=== PATIENT | female | born 1955 | race Caucasian/White ===

== ENCOUNTER 2017-03-08 16:22 | Emergency (ER) | payer OTHER ==
[~2017-03-08] VITALS: Ht 172.7 cm; Wt 83.9 kg
[~2017-03-08 16:22] MED LIST: AMOX875T60 PO; ASCO-342 PO; ASPI-1471 PO; CLIN300C99 PO; IBUP800T37 PO; LIRA0.6P3 SQ; LISI-374 PO; METF-420 PO; OXYC-865 PO; RANI150C17 PO; SIMV-49 PO; TRAM-420 PO
--- NOTE | 2017-03-08 16:29 | ER Report ---
History and Physical Time Seen By MD: 16:28 HPI/ROS CHIEF COMPLAINT: dental pain and lump under her jaw HISTORY OF PRESENT ILLNESS: PT has poor dentition with multiple missing teeth. PT states her remaining left lower molar broke a few months ago. Pt has come to the ed 3 times in January for dental pain. Pt states she needs dental surgery and has an appt in [place] next week. Pt here in [place] today visiting her daughter who is in college. States that she has a lump under her right side of her jaw that started yesterday but seems to be getting worse while here on her visit. Lump is mobile and painful. no fevers. no chills REVIEW OF SYSTEMS: GEn: neg fever HEENT: dental pain, Respiratory: No cough, no dyspnea. Cardiovascular: No chest pain, no palpitations. Gastrointestinal: No vomiting, no abdominal pain. Musculoskeletal: No back pain, + lump under neck Allergies: Coded Allergies: No Known Drug Allergies (Unverified , 03/08/17) Home Meds Reported Medications Furosemide (FUROSEMIDE) 20 Mg Tablet, 1 TAB PO Q6H, TAB 03/08/17 Liraglutide (VICTOZA 2-SHANIA) 0.6 Mg/0.1 Ml Pen.injctr, 0.6 MG SQ 01/24/17 Ascorbic Acid (C-1000) 1,000 Mg Tablet, 1000 MG PO QDAY 10/04/14 Aspirin (ASPIR 81) 81 Mg Tablet.dr, 81 MG PO QDAY, TAB 10/04/14 Ibuprofen (IBUPROFEN) 800 Mg Tablet, 1 TAB PO Q8H, TAB 10/04/14 Simvastatin (SIMVASTATIN) 20 Mg Tablet, 20 MG PO HS, TAB 10/04/14 Ranitidine Hcl (RANITIDINE HCL) 150 Mg Capsule, 150 MG PO BID, CAPSULE 10/04/14 Metformin Hcl (METFORMIN HCL) 1,000 Mg Tablet, 1 TAB PO BID, TAB 10/04/14 Lisinopril (LISINOPRIL) 40 Mg Tablet, 40 MG PO QDAY 10/04/14 Discontinued Scripts Clindamycin Hcl (CLINDAMYCIN HCL) 300 Mg Capsule, 300 MG PO Q6H, #40 CAPSULE Prov:EMI DONATO PROCESS CONTROL SUPERVISOR 01/18/17 Past Medical/Surgical History Pmhx: dm, htn, hyperlipid Reviewed Nurses Notes: Yes Old Medical Records Reviewed: Yes Hx Smoking: No Smoking Status: Never Smoker Hx Substance Use Disorder: No Hx Alcohol Use: No Constitutional Vital Sign - Last 24 Hours 03/08/17 03/08/17 03/08/17 03/08/17 16:25 16:26 16:30 16:37 Temp 97.8 Pulse 70 69 Resp 14 B/P (MAP) 165/96 (119) 165/96 171/93 (119) Pulse Ox 95 98 O2 Delivery Room Air 03/08/17 03/08/17 03/08/17 03/08/17 16:52 17:00 17:22 17:30 Pulse 72 78 B/P (MAP) 141/78 (99) 142/88 (106) Pulse Ox 92 95 Physical Exam General Appearance: The patient is alert, has no immediate need for airway protection and no signs of toxicity. Eyes: Pupils equal and round no pallor or injection, EOMI ENT: no pharyngeal erythema or exudates, Mucous membranes are moist, TM are nl b/l; + poor dentition with multiple missing teeth and cavities evident in present teeth; no palpable abscess felt on gum line Respiratory: There are no retractions, lungs are clear to auscultation. Cardiovascular: Regular rate and rhythm. pulses are equal and symmetrical Gastrointestinal: Abdomen is soft and non tender, no masses, bowel sounds normal, no guarding, no rigidity or rebound Neurological: Cranial nerves II-XII grossly intact, no sensory or motor loss Skin: Warm and dry, no rashes. Neck is supple non tender,+ 1cm mobile lump under right mandibular body that is tender to touch. Extremities are nontender, non swollen and have full range of motion. DIFFERENTIAL DIAGNOSIS: After history and physical exam differential diagnosis was considered for dental abscess, submandibular salivary gland infection, lymphadenitis Medical Decision Making Data Points Result Diagram: 03/08/17 1645 03/08/17 1645 Laboratory Hematology Test 03/08/17 16:45 Red Blood Count 4.66 M/uL (4.17-5.56) Mean Corpuscular Volume 89.8 fL (80.0-96.0) Mean Corpuscular Hemoglobin 30.5 pg (26.0-33.0) Mean Corpuscular Hemoglobin Concent 34.0 g/dL (32.0-36.0) Red Cell Distribution Width 12.9 % (11.5-14.5) Mean Platelet Volume 7.5 fL (7.2-11.1) Neutrophils (%) (Auto) 46.6 % (39.4-72.5) Lymphocytes (%) (Auto) 37.8 % (17.6-49.6) Monocytes (%) (Auto) 11.1 % (4.1-12.4) Eosinophils (%) (Auto) 2.9 % (0.4-6.7) Basophils (%) (Auto) 1.6 % (0.3-1.4) Nucleated RBC Relative Count (auto) 0.0 /100WBC Neutrophils # (Auto) 2.1 K/uL (2.0-7.4) Lymphocytes # (Auto) 1.7 K/uL (1.3-3.6) Monocytes # (Auto) 0.5 K/uL (0.3-1.0) Eosinophils # (Auto) 0.1 K/uL (0.0-0.5) Basophils # (Auto) 0.1 K/uL (0.0-0.1) Nucleated RBC Absolute Count (auto) 0.00 K/uL Sodium Level 140 mmol/L (137-145) Potassium Level 3.5 mmol/L (3.5-5.0) Chloride Level 102 mmol/L (98-107) Carbon Dioxide Level 26 mmol/L (22-31) Blood Urea Nitrogen 14 mg/dl (7-18) Creatinine 0.80 mg/dl (0.52-1.04) Glomerular Filtration Rate Calc > 60.0 Random Glucose 123 mg/dl (75-110) Calcium Level 9.1 mg/dl (8.4-10.2) Chemistry Test 03/08/17 16:45 White Blood Count 4.4 k/uL (4.5-11.0) Red Blood Count 4.66 M/uL (4.17-5.56) Hemoglobin 14.2 g/dL (12.0-16.0) Hematocrit 41.9 % (34.0-47.0) Mean Corpuscular Volume 89.8 fL (80.0-96.0) Mean Corpuscular Hemoglobin 30.5 pg (26.0-33.0) Mean Corpuscular Hemoglobin Concent 34.0 g/dL (32.0-36.0) Red Cell Distribution Width 12.9 % (11.5-14.5) Platelet Count 235 K/uL (150-450) Mean Platelet Volume 7.5 fL (7.2-11.1) Neutrophils (%) (Auto) 46.6 % (39.4-72.5) Lymphocytes (%) (Auto) 37.8 % (17.6-49.6) Monocytes (%) (Auto) 11.1 % (4.1-12.4) Eosinophils (%) (Auto) 2.9 % (0.4-6.7) Basophils (%) (Auto) 1.6 % (0.3-1.4) Nucleated RBC Relative Count (auto) 0.0 /100WBC Neutrophils # (Auto) 2.1 K/uL (2.0-7.4) Lymphocytes # (Auto) 1.7 K/uL (1.3-3.6) Monocytes # (Auto) 0.5 K/uL (0.3-1.0) Eosinophils # (Auto) 0.1 K/uL (0.0-0.5) Basophils # (Auto) 0.1 K/uL (0.0-0.1) Nucleated RBC Absolute Count (auto) 0.00 K/uL Glomerular Filtration Rate Calc > 60.0 Calcium Level 9.1 mg/dl (8.4-10.2) ED Course/Re-evaluation Clinical Indication for ER IV: IV Access ED Course 03/08/2017 5:45:49 pm Pts labs stable. Pts ct shows mild swelling gof submandibular sialadentitis with out evidence of stone. will d/c with abx Pt to hold her metformin due to the contrast. Decision to Disposition Date: Mar 08, 2017 Decision to Disposition Time: 17:46 Depart Departure Latest Vital Signs Vital Signs Date Time Temp Pulse Resp B/P (MAP) Pulse Ox O2 Delivery O2 Flow Rate FiO2 03/08/17 17:30 142/88 (106) 03/08/17 17:22 78 95 03/08/17 16:26 97.8 14 Room Air Impression: Primary Impression: Submandibular sialoadenitis Condition: Improved Disposition: HOME OR SELF-CARE New Scripts Cephalexin 500 Mg Tab (KEFLEX 500 MG TAB) 500 Mg Tablet 500 MG PO Q6H, #28 TAB Prov: JENNIFER OBRIEN DO 03/08/17 Patient Instructions: Sialoadenitis (ED) Additional Instructions: Your salivary gland is inflamed. You need to be on antibiotics. Keflex 500mg every 6 hours until finished. Sucking on navi or lemon type candy may also help your swelling. Motrin/tylenol as needed for pain. You may use warm compress to swelling. Do not take your Metformin (Diabetic medication) tonight and tomorrow. This is due to the contrast material we gave for cat scan. JENNIFER OBRIEN DO Mar 08, 2017 16:29
[2017-03-08] MEDS ORDERED: FURO-45 PO (16:31)
[2017-03-08] MEDS ORDERED: KETOROLAC 30 MG/ML VIAL IVP ONE (16:40)
[2017-03-08] MEDS ORDERED: NS 0.9% 20 ML SDV 60 ML ONE (16:54)
[2017-03-08] MEDS ORDERED: IOPAMIDOL 76% 75 ML INFUS BTL 75 ML ONE (16:54)
[2017-03-08 16:56] LABS: PLATELET COUNT, AUTOMATED 235 K/uL (150-450)
--- NOTE | 2017-03-08 17:45 | RADIOLOGY IMAGING REPORT ---
FACILITY: [facility] - [place] PATIENT NAME: Kim Nichols : 1955 MR: [id number] V: [id number] EXAM DATE: ORDERING PHYSICIAN: JENNIFER OBRIEN TECHNOLOGIST: Location: [facility] - [place], [place] Patient: Kim Nichols : 1955 Visit/Account:[id number] Date of Sevice: 03/08/2017 EXAMINATION: CT neck with IV contrast HISTORY: Right submandibular swelling. TECHNIQUE: Spiral scan was obtained from the hard palate through the upper chest during injection o f nonionic iodinated intravenous contrast. Sagittal and coronal reformatted images are also submitte d. One of the following dose optimization techniques was utilized in the performance of this exam: Autom ated exposure control; adjustment of the mA and/or kV according to the patient's size; or use of an i terative reconstruction technique. Specific details can be referenced in the facility's radiology C T exam operational policy. CONTRAST: 75 mL of IV Isovue-370 COMPARISON: None. FINDINGS: Masses/lesions: Mildly enlarged right submandibular gland with mild surrounding fat stranding. No casey bmandibular ductal dilatation. No evidence of obstructing stone or mass. The left submandibular gland , parotid glands, and thyroid gland are unremarkable. No fluid collection. Airway: Normal. Vessels: Negative. Musculoskeletal / Body wall: Multilevel degenerative disc disease and facet hypertrophy in the cervic al spine. Multiple missing and carious teeth. Lymph node assessment: Negative. Visualized orbits / brain / paranasal sinuses: Negative. Upper chest: Negative. IMPRESSION: 1. Mildly enlarged right submandibular gland with surrounding fat stranding consistent with submandib ular sialadenitis. No evidence of obstructing stone or mass. 2. Multiple missing and carious teeth. 3. Multilevel degenerative disc disease and facet hypertrophy and the cervical spine. Report Dictated By: Yamil Geller MD at 03/08/2017 5:32 PM Report E-Signed By: Yamil Geller MD at 03/08/2017 5:40 PM WSN:[id number]
[2017-03-08] MEDS ORDERED: CEPHALEXIN MONO 500 MG CAP PO ONE (17:50)
[2017-03-08] MEDS ORDERED: CEPH500T7 PO (17:54)
[2017-03-08] MEDS ORDERED: ACET/HYDROC 5/325MG TH ER ONLY 2 TAB/BOTTLE PO ONE (17:55)
[2017-03-08 18:00] VITALS: BP 152/91
== END 2017-03-08 18:01 | disposition home or self-care (01) ==
LOC: ER 16:27
DX: K11.20 Sialoadenitis, unspecified (principal)
CPT/HCPCS: 70491; 85025; 96374; 99284; J1885; J7050; Q9967; 82310; 82374; 82435; 82565; 82947; 84132; 84295; 84520

== ENCOUNTER 2017-04-11 19:56 | Emergency (ER) | payer OTHER ==
[~2017-04-11 19:56] MED LIST changes: +CEPH500T7 PO; +FURO-45 PO
--- NOTE | 2017-04-11 20:06 | ER Report ---
History and Physical Time Seen By MD: 20:06 Hx. of Stated Complaint: pt reporting tooth pain for two days HPI/ROS CHIEF COMPLAINT: Dental pain HISTORY OF PRESENT ILLNESS: This is a 61-year-old female who presents to the emergency department for recurrent dental pain. Patient states that she does have a dental appointments May 01 in [place] to have her teeth removed. Patient was seen here about one month ago and was given a prescription for antibiotics. Patient states that the pain has returned and her remaining teeth on the front bottom. Patient has multiple dental caries poor dentition. Denies aches or chills. Denies nausea or vomiting. No headaches, chest pain or shortness of breath. REVIEW OF SYSTEMS: Respiratory: No cough, no dyspnea. Cardiovascular: No chest pain, no palpitations. Gastrointestinal: No vomiting, no abdominal pain. Musculoskeletal: No back pain. Dental: As above. Allergies: Coded Allergies: No Known Drug Allergies (Unverified , 03/08/17) Home Meds Active Scripts Clindamycin Hcl (CLINDAMYCIN HCL) 300 Mg Capsule, 300 MG PO Q6H, #39 CAPSULE Prov:ANGEL MADDEN HEAD PIECE ASSEMBLER-BC 04/11/17 Cephalexin 500 Mg Tab (KEFLEX 500 MG TAB) 500 Mg Tablet, 500 MG PO Q6H, #28 TAB Prov:JENNIFER OBRIEN DO 03/08/17 Reported Medications Furosemide (FUROSEMIDE) 20 Mg Tablet, 1 TAB PO Q6H, TAB 03/08/17 Liraglutide (VICTOZA 2-SHANIA) 0.6 Mg/0.1 Ml Pen.injctr, 0.6 MG SQ 01/24/17 Ascorbic Acid (C-1000) 1,000 Mg Tablet, 1000 MG PO QDAY 10/04/14 Aspirin (ASPIR 81) 81 Mg Tablet.dr, 81 MG PO QDAY, TAB 10/04/14 Ibuprofen (IBUPROFEN) 800 Mg Tablet, 1 TAB PO Q8H, TAB 10/04/14 Simvastatin (SIMVASTATIN) 20 Mg Tablet, 20 MG PO HS, TAB 10/04/14 Ranitidine Hcl (RANITIDINE HCL) 150 Mg Capsule, 150 MG PO BID, CAPSULE 10/04/14 Metformin Hcl (METFORMIN HCL) 1,000 Mg Tablet, 1 TAB PO BID, TAB 10/04/14 Lisinopril (LISINOPRIL) 40 Mg Tablet, 40 MG PO QDAY 10/04/14 Past Medical/Surgical History She has a past medical and surgical history of hypertension, hypercholesterolemia, GERD, diabetes type II, poor dentition, dental caries, left foot surgery, rotator cuff surgery. Hx Smoking: No Smoking Status: Never Smoker Hx Substance Use Disorder: No Hx Alcohol Use: No Constitutional Vital Sign - Last 24 Hours 04/11/17 04/11/17 20:05 20:55 Temp 97.7 Pulse 67 73 Resp 18 18 B/P (MAP) 166/93 136/85 (102) Pulse Ox 96 95 O2 Delivery Room Air Room Air Physical Exam General Appearance: The patient is alert, has no immediate need for airway protection and no current signs of toxicity. Eyes: Pupils equal and round no injection. Dental: Multiple dental caries poor dentition and receding gumline on the remaining teeth. Mild erythema to the lower front gumline. Respiratory: Chest is non tender, lungs are clear to auscultation. Cardiac: regular rate and rhythm. Gastrointestinal: Abdomen is soft and non tender, no masses, bowel sounds normal. Musculoskeletal: Neck: Neck is supple and non tender. Extremities have full range of motion and are non tender. Skin: No rashes or lesions. DIFFERENTIAL DIAGNOSIS: After history and physical exam differential diagnosis was considered for dental caries, gingivitis and dental abscess. Medical Decision Making ED Course/Re-evaluation ED Course The patient was admitted to room. History of physical obtained. Different diagnoses were considered. After evaluation of the patient's chief complaint did note some erythema to her lower front gumline along with a receding gumline and multiple dental caries noted to the remaining 4 front teeth. Patient was given 800 mg ibuprofen in the emergency department as well as a dose of clindamycin. Patient was instructed to follow-up with her dentist as scheduled May 01. A prescription was sent to the patient's pharmacy for clindamycin. Patient was also given a prescription for Magic mouthwash to help with some of the discomfort. Patient was also instructed to try dental wax to help with some of the discomfort. Patient was in agreement with this plan of care and discharged home. Patient was instructed to return to the ED for any other concerns or worsening symptoms. Decision to Disposition Date: Apr 11, 2017 Decision to Disposition Time: 20:59 Depart Departure Latest Vital Signs Vital Signs Date Time Temp Pulse Resp B/P (MAP) Pulse Ox O2 Delivery O2 Flow Rate FiO2 04/11/17 20:55 73 18 136/85 (102) 95 Room Air 04/11/17 20:05 97.7 Impression: Primary Impression: Pain, dental Condition: Improved Disposition: HOME OR SELF-CARE New Scripts Clindamycin Hcl (CLINDAMYCIN HCL) 300 Mg Capsule 300 MG PO Q6H, #39 CAPSULE Prov: ANGEL MADDEN 04/11/17 Patient Instructions: Dental Caries (DC) Additional Instructions: Drink plenty of fluids. Get plenty of rest. Take the antibiotics as prescribed. Can take 800 mg of ibuprofen every 8 hours as needed for pain. You can also take 1000 mg of Tylenol up to 4 times a day as needed for pain. Keep your dental appointment May 01. May return to the emergency department for any other concerns or worsening symptoms. ANGEL MADDEN-BC Apr 11, 2017 20:06
[2017-04-11] MEDS ORDERED: IBUPROFEN 800 MG TAB PO ONE (20:20)
[2017-04-11] MEDS ORDERED: CLINDAMYCIN 150 MG CAP PO ONE (20:30)
[2017-04-11] MEDS ORDERED: CLIN300C99 PO (20:30)
[2017-04-11 20:55] VITALS: BP 136/85
== END 2017-04-11 21:11 | disposition home or self-care (01) ==
LOC: ER 20:23
DX: K08.89 Other specified disorders of teeth and supporting structures (principal)
CPT/HCPCS: 99284

== ENCOUNTER 2017-08-08 08:34 | Emergency (ER) | payer OTHER ==
[~2017-08-08 08:34] MED LIST changes: -METF-420 PO; +METF-421 PO
--- NOTE | 2017-08-08 08:46 | ER Report ---
History and Physical Time Seen By MD: 08:48 Hx. of Stated Complaint: PT PRESENTSW WITH HX OF BREAKING 2 TEETH A FEW DAYS AGO NOW GIVING HER PAIN HPI/ROS CHIEF COMPLAINT: broken teeth HISTORY OF PRESENT ILLNESS: This is a 62 year old female. She broke several of her bottom teeth 2 days ago. Taking Tylenol and Ibuprofen, still with pain. Dentist working on getting an appointment to get her in. Swelling in the area of lower jaw on the right, where the problem is. Allergies: Coded Allergies: No Known Drug Allergies (Unverified , 08/08/17) Home Meds Active Scripts Amoxicillin (AMOXICILLIN) 500 Mg Capsule, 1 CAP PO Q8H, #21 CAPSULE 0 Refills Prov:SHREYA BOLIVAR MD 08/08/17 Hydrocodone Bit/Acetaminophen (HYDROCODON-ACETAMINOPHEN 5-325) 1 Each Tablet, 1 EACH PO Q4H Y for PAIN, #12 TAB 0 Refills Prov:SHREYA BOLIVAR MD 08/08/17 Reported Medications Furosemide (FUROSEMIDE) 20 Mg Tablet, 1 TAB PO Q6H, TAB 03/08/17 Liraglutide (VICTOZA 2-SHANIA) 0.6 Mg/0.1 Ml Pen.injctr, 0.6 MG SQ 01/24/17 Ascorbic Acid (C-1000) 1,000 Mg Tablet, 1000 MG PO QDAY 10/04/14 Aspirin (ASPIR 81) 81 Mg Tablet.dr, 81 MG PO QDAY, TAB 10/04/14 Ibuprofen (IBUPROFEN) 800 Mg Tablet, 1 TAB PO Q8H, TAB 10/04/14 Simvastatin (SIMVASTATIN) 20 Mg Tablet, 20 MG PO HS, TAB 10/04/14 Ranitidine Hcl (RANITIDINE HCL) 150 Mg Capsule, 150 MG PO BID, CAPSULE 10/04/14 Metformin Hcl (METFORMIN HCL) 1,000 Mg Tablet, 1 TAB PO BID, TAB 10/04/14 Lisinopril (LISINOPRIL) 40 Mg Tablet, 40 MG PO QDAY 10/04/14 Discontinued Scripts Clindamycin Hcl (CLINDAMYCIN HCL) 300 Mg Capsule, 300 MG PO Q6H, #39 CAPSULE Prov:ANGEL MADDEN WOOD LAST MAKER-BC 04/11/17 Cephalexin 500 Mg Tab (KEFLEX 500 MG TAB) 500 Mg Tablet, 500 MG PO Q6H, #28 TAB Prov:JENNIFER OBRIEN DO 03/08/17 Reviewed Nurses Notes: Yes Hx Smoking: No Smoking Status: Never Smoker Hx Substance Use Disorder: No Hx Alcohol Use: No Constitutional Vital Sign - Last 24 Hours 08/08/17 08/08/17 08:42 09:20 Temp 97.4 Pulse 70 Resp 20 B/P (MAP) 160/91 139/87 (104) Pulse Ox 95 O2 Delivery Room Air Physical Exam General: Alert, no acute distress. ENT: Broken teeth, lower right incisors, canine. Severe carries. Some redness and swelling of the gums. No sign of abscess. Medical Decision Making ED Course/Re-evaluation ED Course After initial evaluation, the patient was given Lortab to help with pain as well as amoxicillin and will follow up with her dentist as planned. Decision to Disposition Date: Aug 08, 2017 Decision to Disposition Time: 09:15 Depart Departure Latest Vital Signs Vital Signs Date Time Temp Pulse Resp B/P (MAP) Pulse Ox O2 Delivery O2 Flow Rate FiO2 08/08/17 09:20 139/87 (104) 08/08/17 08:42 97.4 70 20 95 Room Air Impression: Primary Impression: Pain, dental Condition: Improved Disposition: HOME OR SELF-CARE New Scripts Amoxicillin (AMOXICILLIN) 500 Mg Capsule 1 CAP PO Q8H, #21 CAPSULE 0 Refills Prov: SHREYA BOLIVAR MD 08/08/17 Hydrocodone Bit/Acetaminophen (HYDROCODON-ACETAMINOPHEN 5-325) 1 Each Tablet 1 EACH PO Q4H Y for PAIN, #12 TAB 0 Refills Prov: SHREYA BOLIVAR MD 08/08/17 Patient Instructions: Dental Caries (ED) Additional Instructions: Follow-up with your dentist as planned. Keep taking the Ibuprofen for pain. Take Lortab 5/325, one every 4hours as needed for pain. Take Amoxicillin 500mg, three times a day SHREYA BOLIVAR MD Aug 08, 2017 08:46
[2017-08-08] MEDS ORDERED: LOR5/325 PO (09:18)
[2017-08-08] MEDS ORDERED: AMOX-362 PO (09:18)
[2017-08-08 09:20] VITALS: BP 139/87
== END 2017-08-08 09:27 | disposition home or self-care (01) ==
LOC: ER 08:47
DX: S02.5XXA Fracture of tooth (traumatic), initial encounter for closed fracture (principal)
CPT/HCPCS: 99281

== ENCOUNTER 2017-10-05 18:32 | Emergency (ER) | payer BC, OTHER ==
[~2017-10-05 18:32] MED LIST changes: +AMOX-362 PO; +LOR5/325 PO
--- NOTE | 2017-10-05 18:34 | ER Report ---
History and Physical Time Seen By MD: 18:34 HPI/ROS CHIEF COMPLAINT: Right ankle injury HISTORY OF PRESENT ILLNESS: 62-year-old female presents ambulatory to the ER with lateral right ankle swelling after falling down 3 steps at approximately 11 AM this morning. She's been taking Tylenol and ibuprofen without relief. Her significant soft tissue swelling to the lateral malleolus. There is some ecchymosis. Patient also notes some pain radiating to the medial aspect of the right ankle. She denies any other injuries during the fall. There are no abrasions. Allergies: Coded Allergies: No Known Drug Allergies (Unverified , 08/08/17) Home Meds Active Scripts Tramadol Hcl (TRAMADOL HCL) 50 Mg Tablet, 1 TAB PO Q6H PRN for PAIN, #12 MG TAKE ONE TABLETS BY MOUTH EVERY SIX HOURS NEEDED Prov:KI FREITAS DO 10/05/17 Amoxicillin (AMOXICILLIN) 500 Mg Capsule, 1 CAP PO Q8H, #21 CAPSULE 0 Refills Prov:SHREYA BOLIVAR MD 08/08/17 Hydrocodone Bit/Acetaminophen (HYDROCODON-ACETAMINOPHEN 5-325) 1 Each Tablet, 1 EACH PO Q4H PRN for PAIN, #12 TAB 0 Refills Prov:SHREYA BOLIVAR MD 08/08/17 Reported Medications Furosemide (FUROSEMIDE) 20 Mg Tablet, 1 TAB PO Q6H, TAB 03/08/17 Liraglutide (VICTOZA 2-SHANIA) 0.6 Mg/0.1 Ml Pen.injctr, 0.6 MG SQ 01/24/17 Ascorbic Acid (C-1000) 1,000 Mg Tablet, 1000 MG PO QDAY 10/04/14 Aspirin (ASPIR 81) 81 Mg Tablet.dr, 81 MG PO QDAY, TAB 10/04/14 Ibuprofen (IBUPROFEN) 800 Mg Tablet, 1 TAB PO Q8H, TAB 10/04/14 Simvastatin (SIMVASTATIN) 20 Mg Tablet, 20 MG PO HS, TAB 10/04/14 Ranitidine Hcl (RANITIDINE HCL) 150 Mg Capsule, 150 MG PO BID, CAPSULE 10/04/14 Metformin Hcl (METFORMIN HCL) 1,000 Mg Tablet, 1 TAB PO BID, TAB 10/04/14 Lisinopril (LISINOPRIL) 40 Mg Tablet, 40 MG PO QDAY 10/04/14 Past Medical/Surgical History Dental problems, frequent ER visits, now has dentures Reviewed Nurses Notes: Yes Old Medical Records Reviewed: Yes Hx Smoking: No Smoking Status: Never Smoker Hx Substance Use Disorder: No Hx Alcohol Use: No Constitutional Vital Sign - Last 24 Hours 10/05/17 10/05/17 10/05/17 10/05/17 18:36 18:47 19:00 19:02 Temp 97.7 Pulse 66 75 69 Resp 18 B/P (MAP) 119/110 133/81 (98) Pulse Ox 94 93 94 O2 Delivery Room Air 10/05/17 19:17 Pulse 72 Pulse Ox 95 Physical Exam General appearance: Alert no distress. Respiratory: Chest is non tender, lungs are clear to auscultation. Cardiac: Regular rate and rhythm Extremities: Right lower ankle with lateral soft tissue swelling and ecchymosis. There is no tenderness over the base of the 5th metatarsal. All toes are neurovascularly intact with good movement. There is no tenderness or swelling over the medial aspect of the ankle. There is decreased range of motion consistent with the injury. The tib-fib is unremarkable on palpation. The knee is unremarkable on palpation DIFFERENTIAL DIAGNOSIS: After history and physical exam differential diagnosis was considered for sprain, strain, fracture, dislocation, contusion Medical Decision Making EKG/Imaging Imaging X-ray: Right ankle, 3 views was obtained. I viewed the images myself on the PACS system. My interpretation of the images is: No fracture no dislocation or malalignment. The radiologist interpretation had no clinically significant variation from this interpretation. ED Course/Re-evaluation ED Course Patient was admitted to an examination room. H&P was done. The differential diagnoses was considered. On clinical examination. Patient has a swollen right ankle. She fell down 3 steps. She is able to him to late on her ankle, but there is significant lateral swelling and ecchymosis. Diagnostic x-rays were performed which are unremarkable. Patient's placed in an Saleem wrap and Aircast. She is given tramadol for additional pain relief. Patient advised to follow-up with primary care in 3-5 days. Decision to Disposition Date: Oct 05, 2017 Decision to Disposition Time: 19:03 Depart Departure Latest Vital Signs Vital Signs Date Time Temp Pulse Resp B/P (MAP) Pulse Ox O2 Delivery O2 Flow Rate FiO2 10/05/17 19:17 72 95 10/05/17 19:00 133/81 (98) 10/05/17 18:36 97.7 18 Room Air Impression: Primary Impression: Right ankle sprain Condition: Improved Disposition: HOME OR SELF-CARE New Scripts Tramadol Hcl (TRAMADOL HCL) 50 Mg Tablet 1 TAB PO Q6H PRN for PAIN, #12 MG TAKE ONE TABLETS BY MOUTH EVERY SIX HOURS NEEDED Prov: KI FREITAS DO 10/05/17 Patient Instructions: Ankle Sprain (ED) Additional Instructions: Take ibuprofen 200 mg 2-3 tablets 3 times a day with food Elevate and apply ice to ankle for 2-3 days, then apply heat Follow-up with primary care if unimproved in 3-5 days. Problem Qualifiers Primary Impression: Right ankle sprain Encounter type: initial encounter Involved ligament of ankle: unspecified ligament Qualified Codes: S93.401A - Sprain of unspecified ligament of right ankle, initial encounter KI FREITAS DO Oct 05, 2017 18:34
[2017-10-05 19:00] VITALS: BP 133/81
[2017-10-05] MEDS ORDERED: TRAM-420 PO (19:05)
--- NOTE | 2017-10-05 19:13 | RADIOLOGY IMAGING REPORT ---
FACILITY: [facility] PATIENT NAME: Kim Nichols : 1955 MR: [id number] V: [id number] EXAM DATE: ORDERING PHYSICIAN: KI FREITAS TECHNOLOGIST: Location: [facility] - [place] Patient: Kim Nichols : 1955 Visit/Account:[id number] Date of Sevice: 10/05/2017 EXAMINATION: Right ankle 3 views HISTORY: Fell down 3 steps. Rule out fracture. COMPARISON: None. FINDINGS: Bones of the right ankle demonstrate normal alignment. No evidence of acute fracture or dislocation. Joint space is preserved along the ankle mortise. Plantar and Achilles calcaneal spurs. Soft tissue swelling surrounds the right ankle. IMPRESSION: No acute osseous findings at the right ankle. Soft tissue swelling. Report Dictated By: Pankaj Brooks MD at 10/05/2017 7:07 PM Report E-Signed By: Pankaj Brooks MD at 10/05/2017 7:09 PM [id number]
== END 2017-10-05 19:23 | disposition home or self-care (01) ==
LOC: ER 18:38
DX: S93.401A Sprain of unspecified ligament of right ankle, initial encounter (principal); W10.9XXA Fall (on) (from) unspecified stairs and steps, initial encounter
CPT/HCPCS: 73610; 99283; L1930

== ENCOUNTER 2018-04-12 13:44 | Emergency (ER) | payer BC, OTHER ==
[~2018-04-12 13:44] MED LIST changes: -METF-421 PO; +METF-452 PO
--- NOTE | 2018-04-12 13:58 | ER Report ---
History and Physical Time Seen By MD: 13:58 Hx. of Stated Complaint: pain from rotator cuff injury HPI/ROS CHIEF COMPLAINT: Left shoulder pain HISTORY OF PRESENT ILLNESS: 62-year-old female patient presents to emergency room with complaint of left shoulder pain. Patient states that she's been having pain for the past several months. She states she is seeing an orthopedist who believes that she has a torn rotator cuff. She states the plan is to have surgery in May. She states that she's been having horrible pain for the past several days. She states she has tried tramadol with no improvement. She denies any fevers, chills, nausea, vomiting or diarrhea. She denies any recent injury to the shoulder. She rates her pain currently a 9 out of 10. REVIEW OF SYSTEMS: Respiratory: No cough, no dyspnea. Cardiovascular: No chest pain, no palpitations. Gastrointestinal: No vomiting, no abdominal pain. Musculoskeletal: As noted above Allergies: Coded Allergies: No Known Drug Allergies (Unverified , 04/12/18) Home Meds Active Scripts Hydrocodone Bit/Acetaminophen (HYDROCODON-ACETAMINOPHEN 5-325) 1 Each Tablet, 1 EACH PO Q4-6H PRN for PAIN, #8 TAB Prov:EMI DONATO [employer]IC WORKER 04/12/18 Tramadol Hcl (TRAMADOL HCL) 50 Mg Tablet, 1 TAB PO Q6H PRN for PAIN, #12 MG TAKE ONE TABLETS BY MOUTH EVERY SIX HOURS NEEDED Prov:KI FREITAS DO 10/05/17 Reported Medications Furosemide (FUROSEMIDE) 20 Mg Tablet, 1 TAB PO Q6H, TAB 03/08/17 Liraglutide (VICTOZA 2-SHANIA) 0.6 Mg/0.1 Ml Pen.injctr, 0.6 MG SQ 01/24/17 Ascorbic Acid (C-1000) 1,000 Mg Tablet, 1000 MG PO QDAY 10/04/14 Aspirin (ASPIR 81) 81 Mg Tablet.dr, 81 MG PO QDAY, TAB 10/04/14 Ibuprofen (IBUPROFEN) 800 Mg Tablet, 1 TAB PO Q8H, TAB 10/04/14 Simvastatin (SIMVASTATIN) 20 Mg Tablet, 20 MG PO HS, TAB 10/04/14 Ranitidine Hcl (RANITIDINE HCL) 150 Mg Capsule, 150 MG PO BID, CAPSULE 10/04/14 Metformin Hcl (METFORMIN HCL) 1,000 Mg Tablet, 1 TAB PO BID, TAB 10/04/14 Lisinopril (LISINOPRIL) 40 Mg Tablet, 40 MG PO QDAY 10/04/14 Discontinued Scripts Amoxicillin (AMOXICILLIN) 500 Mg Capsule, 1 CAP PO Q8H, #21 CAPSULE 0 Refills Prov:SHREYA BOLIVAR MD 08/08/17 Hydrocodone Bit/Acetaminophen (HYDROCODON-ACETAMINOPHEN 5-325) 1 Each Tablet, 1 EACH PO Q4H PRN for PAIN, #12 TAB 0 Refills Prov:SHREYA BOLIVAR MD 08/08/17 Past Medical/Surgical History Patient has a past medical history of hypertension, hypokalemia, reflux, diabetes. Patient surgical history of right rotator cuff surgery, left foot surgery. Reviewed Nurses Notes: Yes Hx Smoking: No Smoking Status: Never Smoker Hx Substance Use Disorder: No Hx Alcohol Use: No Constitutional Vital Sign - Last 24 Hours 04/12/18 04/12/18 04/12/18 04/12/18 13:50 13:52 14:00 14:15 Temp 97.8 Pulse 74 78 Resp 18 B/P (MAP) 159/96 (117) 159/96 163/90 (114) Pulse Ox 90 87 O2 Delivery Room Air 04/12/18 04/12/18 04/12/18 14:30 15:00 15:15 B/P (MAP) 171/101 (124) 156/87 (110) Pulse Ox 91 Physical Exam General Appearance: The patient is alert, has no immediate need for airway protection and no current signs of toxicity. Respiratory: Chest is non tender, lungs are clear to auscultation. Cardiac: regular rate and rhythm Gastrointestinal: Abdomen is soft and non tender, no masses, bowel sounds normal. Musculoskeletal: Neck: Neck is supple and non tender. Extremities have full range of motion and are non tender. Patient has some tenderness to the left shoulder. Skin: No rashes or lesions. DIFFERENTIAL DIAGNOSIS: After history and physical exam differential diagnosis w as considered for fracture, contusion, shoulder pain. Medical Decision Making EKG/Imaging Imaging Exam type: SHOULDER MIN 2 VIEWS LEFT History: Rotator cuff pain in left shoulder, surgery scheduled for May, no known injury Comparison: None. Findings: There is mild to moderate narrowing at the left glenohumeral joint with mild inferior spurring along the inferior aspect of the glenoid. There is no evidence of acute fracture or dislocation. No evidence of a left AC joint separation IMPRESSION: 1. Degenerative changes at the glenohumeral joint as described above although n o evidence of acute fracture or dislocation Report Dictated By: Merary Gupta MD at 04/12/2018 2:57 PM Report E-Signed By: Merary Gupta MD at 04/12/2018 2:59 PM ED Course/Re-evaluation ED Course Patient was admitted to a room and placed in a bed. History and physical was obtained. Differential diagnoses were considered. X-ray of the left shoulder was obtained and results were discussed with the patient. Prescription was given for pain medication for the weekend. Patient to follow up on Sunday with her PCP or orthopedic provider. Instructions were given to the patient and patient verbalized understanding. Patient was discharge to home. Decision to Disposition Date: Apr 12, 2018 Decision to Disposition Time: 15:09 Depart Departure Latest Vital Signs Vital Signs Date Time Temp Pulse Resp B/P (MAP) Pulse Ox O2 Delivery O2 Flow Rate FiO2 04/12/18 15:15 91 04/12/18 15:00 156/87 (110) 04/12/18 14:15 78 04/12/18 13:52 97.8 18 Room Air Impression: Primary Impression: Shoulder pain, left Condition: Improved Disposition: HOME OR SELF-CARE New Scripts Hydrocodone Bit/Acetaminophen (HYDROCODON-ACETAMINOPHEN 5-325) 1 Each Tablet 1 EACH PO Q4-6H PRN for PAIN, #8 TAB Prov: EMI DONATO 04/12/18 Patient Instructions: Shoulder Pain (ED) Additional Instructions: Limit activity by pain. Continue with ice and heat for the shoulder. Get plenty of rest. Call your surgeon to make an appointment for Sunday to discuss your pain. Return to the ER if condition worsens. Problem Qualifiers Primary Impression: Shoulder pain, left Chronicity: acute Qualified Codes: M25.512 - Pain in left shoulder EMI DONATO Apr 12, 2018 13:58
[2018-04-12 15:00] VITALS: BP 156/87
--- NOTE | 2018-04-12 15:04 | RADIOLOGY IMAGING REPORT ---
FACILITY: [facility] [place] PATIENT NAME: Kim Nichols : 1955 MR: [id number] V: [id number] EXAM DATE: ORDERING PHYSICIAN: EMI DONATO TECHNOLOGIST: Location: [facility] Patient: Kim Nichols : 1955 Visit/Account:[id number] Date of Sevice: 04/12/2018 Exam type: SHOULDER MIN 2 VIEWS LEFT History: Rotator cuff pain in left shoulder, surgery scheduled for May, no known injury Comparison: None. Findings: There is mild to moderate narrowing at the left glenohumeral joint with mild inferior spurring along the inferior aspect of the glenoid. There is no evidence of acute fracture or dislocation. No evide nce of a left AC joint separation IMPRESSION: 1. Degenerative changes at the glenohumeral joint as described above although no evidence of acute f racture or dislocation Report Dictated By: Merary Gupta MD at 04/12/2018 2:57 PM Report E-Signed By: Merary Gupta MD at 04/12/2018 2:59 PM WSN:[email or web address]
[2018-04-12] MEDS ORDERED: HYDR-385 PO (15:10)
== END 2018-04-12 15:33 | disposition home or self-care (01) ==
LOC: ER 14:29
DX: M25.512 Pain in left shoulder (principal)
CPT/HCPCS: 99283